=== PATIENT | female | born 1990 | race Two or more races ===

== ENCOUNTER 2017-03-11 21:04 | Emergency (ER) | payer SELFPAY ==
[~2017-03-11] VITALS: Ht 160 cm; Wt 48.5 kg
[2017-03-11 22:00] VITALS: BP 120/82
[2017-03-11 22:30] VITALS: BP 120/82
--- NOTE | 2017-03-11 22:36 | Emergency Room Report ---
History of Present Illness General Chief Complaint: Skin Rash/Abscess Source: Patient Present Illness HPI Is a 26-year-old female with no significant past medical history. Initially she denies any drug use but admit to using drugs. She presents with possible scabies. She said that she has a rash on her head and also her thigh. Denies any fever chills denies any nausea vomiting. Denies any other complaint. Allergies: Coded Allergies: AMOXICILLIN (Verified Allergy, Unknown, 03/11/17) AZITHROMYCIN (Verified Allergy, Unknown, 03/11/17) CIPROFLOXACIN (Verified Allergy, Unknown, 03/11/17) Patient History Past Medical History: see triage record, old chart reviewed Past Surgical History: none Pertinent Family History: other Social History: Reports: drug use Last Menstrual Period: 2 weeks ago Now: No Immunizations: other Reviewed Nursing Documentation: PMH: Agreed, PSxH: Agreed Nursing Documentation-PMH Hx Cardiac Problems: Yes - ENDOCARDITIS Hx Gastrointestinal Problems: Yes - KIDNEY FAILURE Review of Systems Eye: Denies: eye pain, blurred vision ENT: Denies: ear pain, nose congestion, throat swelling Respiratory: Denies: cough, shortness of breath Cardiovascular: Denies: chest pain, palpitations Gastrointestinal: Denies: abdominal pain, diarrhea, nausea, vomiting Musculoskeletal: Denies: back pain, joint pain Skin: Reports: rash Neurological: Denies: headache, numbness Endocrine: Denies: increased thirst, increased urine Hematologic/Lymphatic: Denies: easy bruising All Other Systems: negative except mentioned in HPI Physical Exam Vital Signs Date Time Temp Pulse Resp B/P (MAP) Pulse Ox O2 Delivery O2 Flow Rate FiO2 03/11/17 21:42 97.9 92 16 117/74 93 Room Air vitals normal Sp02 EP Interpretation: reviewed, normal General Appearance: well appearing, no apparent distress, alert Head: normocephalic, atraumatic Eyes: bilateral eye PERRL, bilateral eye EOMI ENT: hearing grossly normal, normal pharynx Neck: full range of motion, supple, no meningismus Respiratory: chest non-tender, lungs clear, normal breath sounds Cardiovascular #1: regular rate, rhythm, no murmur Gastrointestinal: normal bowel sounds, non tender, no mass, no organomegaly, no bruit, non-distended Musculoskeletal: back normal, gait/station normal, normal range of motion, other - Multiple scab gonzales from skin picking on her upper extremities. Neurologic: alert, oriented x3 Psychiatric: mood/affect normal Skin: warm/dry Medical Decision Making Diagnostic Impression: Primary Impression: Drug abuse Additional Impression: Delusions of parasitosis ER Course Patient presents with complaint of scabies. This is most likely secondary to delusional parasitosis of drug abuse. She came in by EMS. I was able to examine and take history from the EMS gurney. Because the ER was full, I asked the EMS to offload her to the waiting room for triage. When the triage nurse call her name 45 minutes later, patient had left. I was not able to examine her lower extremity to see if she had an abscess or not. Based on the description it is unlikely. Last Vital Signs Date Time Temp Pulse Resp B/P (MAP) Pulse Ox O2 Delivery O2 Flow Rate FiO2 03/11/17 21:42 97.9 92 16 117/74 93 Room Air Status: unchanged Disposition: ELOPED Condition: Stable RAINA GONZALEZ M.D. Mar 11, 2017 22:36
== END 2017-03-11 23:00 | disposition left against medical advice (07) ==
LOC: EDBD 21:04 → EMR 22:45
DX: F19.10 Other psychoactive substance abuse, uncomplicated (principal); F22 Delusional disorders; R23.4 Changes in skin texture; Z88.0 Allergy status to penicillin; Z88.1 Allergy status to other antibiotic agents
CPT/HCPCS: 99282

== ENCOUNTER 2018-08-17 22:31 | Emergency (ER) | payer SELFPAY ==
[~2018-08-17] VITALS: Ht 160 cm; Wt 54.4 kg
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
[2018-08-17 22:44] VITALS: BP 110/73
[2018-08-17] MEDS ORDERED: Morphine Sulfate 2mg/ml Inj(IV/IM USE ONLY) IM ONE (23:45)
--- NOTE | 2018-08-17 23:50 | NUR ---
ED Nurse Note: Pt refused IV access, ERMD notififed
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
[2018-08-18 00:31] LABS: APPEARANCE,URINE SLIGHTLY CLOUDY; BILIRUBIN, URINE NEGATIVE (NEGATIVE); GLUCOSE, URINE (UA) NEGATIVE (NEGATIVE); KETONES,URINE 1+ (NEGATIVE); LEUKOCYTE ESTERASE ,URINE 2+ (NEGATIVE); NITRITE,URINE POSITIVE (NEGATIVE); PH,URINE 6.5 (4.5-8.0); PROTEIN,URINE 2+ (NEGATIVE); UROBILINOGEN,URINE 4 MG/DL (0.0-1.0)
[2018-08-18 00:45] VITALS: BP 125/74
[2018-08-18] MEDS ORDERED: IBUPROFEN600 MG ORAL (00:45)
--- NOTE | 2018-08-18 00:45 | NUR ---
ER DISCHARGE NOTE: Patient is cleared to be discharged per ERMD, pt is aox4, on room air, with stable vital signs. pt was given dc and prescription instructions, pt was able to verbalize understanding, pt id band removed. pt is able to ambulate with steady gait. pt took all belongings.
[2018-08-18 00:51] LABS: COLOR,URINE YELLOW
== END 2018-08-18 00:45 | disposition home or self-care (01) ==
LOC: EDUNIT# 22:31 → EDBD 22:31 → EMR 23:28
DX: S39.012A Strain of muscle, fascia and tendon of lower back, initial encounter (principal); X58.XXXA Exposure to other specified factors, initial encounter; Y92.9 Unspecified place or not applicable; Z88.0 Allergy status to penicillin; N19 Unspecified kidney failure
CPT/HCPCS: 80307; 81001; 81025; 87086; 87181; 96372; 99284; J2270